=== PATIENT | male | born 1995 | race American Indian/Alaskan Native ===

== ENCOUNTER 2020-02-20 09:55 | Outpatient (CLI) | payer OTHER ==
--- NOTE | 2020-02-20 12:12 | Magnetic Resonance Report ---
MR LE joint LT wo con INDICATION / CLINICAL INFORMATION: MAIN. TECHNIQUE: Multiplanar, multisequence MR images were obtained. COMPARISON: None available. FINDINGS: No significant joint fluid is present. There is edema seen in the lateral aspect of Hoffa's fat. The menisci are normal without evidence of a tear. Cruciate ligaments, collateral ligaments and extensor mechanism are intact. IMPRESSION: Focal edema in the lateral aspect of Hoffa's fat which could be related to patellofemoral friction sy ndrome. Otherwise negative MRI of the left knee Signer Name: Jethro Jimenez MD FACMariel Signed: 02/20/2020 12:07 PM Workstation Name: [id number]
== END 2020-02-20 09:56 | disposition home or self-care (01) ==
LOC: MRI 09:55
PROVIDERS: ATTEND Orthopaedic Surgery
DX: M23.92 Unspecified internal derangement of left knee (principal)
CPT/HCPCS: 73721